=== PATIENT | female | born 1975 | race Caucasian/White ===

== ENCOUNTER 2020-04-03 14:31 | Emergency (ER) | payer MEDICAID ==
[~2020-04-03] VITALS: Ht 162.6 cm; Wt 102.3 kg
[2020-04-03 15:49] VITALS: BP 166/98
== END 2020-04-03 15:51 | disposition home or self-care (01) ==
LOC: ER 14:32
DX: R20.2 Paresthesia of skin (principal); R03.0 Elevated blood-pressure reading, without diagnosis of hypertension
CPT/HCPCS: 99281